=== PATIENT | female | born 1970 | race Caucasian/White ===

== ENCOUNTER 2016-09-24 16:18 | Emergency (ER) | payer OTHER ==
--- NOTE | ~2016-09-24 | CR94 ---
[facility]. [facility] A Service of [facility] & [facility] / [facility] RADIOLOGY TEXT RESULTS PATIENT: SAMY ISRAEL LOCATION: SED : 70 UNIT #: [id number] AGE: [address]: Kellen Hall APRN SEX: F ORDER DR: [id number] [place] [id number] E MR#: [id number] Acc #: [id number] NAME: SAMY ISRAEL : 1970 SEX: F STUDY DATE/TIME: 09/24/2016 16:05 UNIT: SED ROOM: STUDY DESCRIPTION: CR Elbow Min 3 Views Rt Attending Physician: Kellen Hall A.P.R.N. Ordering Physician: Kellen Lilly A.P.R.N. Primary Care Physician: Chris Wang M.D. MEDICAL IMAGING REPORT This report is preliminary unless electronic signature is present. EXAM Right elbow HISTORY Generalized elbow pain, worsening over 3 weeks after hitting on a door FINDINGS AP and lateral examination of the elbow shows satisfactory articulation of the humerus with the proximal radius and ulna. There is no identifiable fracture, dislocation, joint effusion, or radiopaque foreign body in the soft tissues. IMPRESSION Normal elbow. Dictated by... Donovan Kaufman Jr., M.D. THIS IS AN ELECTRONICALLY VERIFIED REPORT Donovan Kaufman Jr., M.D. at 09/25/2016 10:07 AM DAMI/geo TD: 09/24/2016 23:01 JOB #: [id number] MEDICAL IMAGING REPORT Page 1 of 1
[~2016-09-24 16:18] MED LIST: FLEXERIL PO; HYDROCODON-ACE1 EAC9 PO; MULTI-VITAMIN1 TAB PO; NO HOME MEDS; PERCOCET 5-3251 TAB PO; PERCOCET5/325 PO; SILVADENE TOP; [UNRECOGNIZED DRUG - MIXTURE]
== END 2016-09-24 16:34 | disposition home or self-care (01) ==
LOC: SED 16:18
DX: S53.401A Unspecified sprain of right elbow, initial encounter (principal); Z90.49 Acquired absence of other specified parts of digestive tract; Z90.710 Acquired absence of both cervix and uterus; X58.XXXA Exposure to other specified factors, initial encounter; Y93.B9 Activity, other involving muscle strengthening exercises; Y92.009 Unspecified place in unspecified non-institutional (private) residence as the place of occurrence of the external cause
CPT/HCPCS: 29260; 73080; 99283